=== PATIENT | male | born 1975 | race Asian ===

== ENCOUNTER 2017-11-19 22:10 | Emergency (ER) | payer OTHER ==
[~2017-11-19] VITALS: Ht 162.6 cm; Wt 56.7 kg
--- NOTE | 2017-11-19 22:25 | NUR ---
PT A/OX4 BREATHING EFFORTLESSLY ON ROOM AIR, PT STATES HE WAS HVAING DINNER AND STARTED HAVING A SIEZURE, PT DENIES ANY INJURIES AT THIS TIME AND STATES HIS LAST ONE WAS 1.5 YEARS AGO AND DOES NOT TAKE ANYTHING FOR SIEZURES, PT ON MONITOR, ION GOWN, BED RAILS PADDED, MADE AWARE WILL CONTINUE TO MONITOR.
--- NOTE | 2017-11-19 22:45 | NUR ---
PT REFUSING IV AND DILATIN AT THIS TIME, MD MADE AWARE WILL CONTINUE TO MONITOR.
[2017-11-19] MEDS: phenytoin SODIUM IV 1,000 MG in IV NS 0.9% 100 ML IV ONE (22:48)
[2017-11-19 23:07] LABS: BASOPHILS # (AUTO) 0.1 /CMM (0.0-0.2); BASOPHILS % (AUTO) 0.9 % (0.0-2.0); EOSINOPHILS # (AUTO) 0.1 /CMM (0.0-0.7); EOSINOPHILS % (AUTO) 1.2 % (0.0-6.0); HEMATOCRIT 43 % (39-51); HEMOGLOBIN 14.7 g/dL (13.5-17.5); LYMPHOCYTES # (AUTO) 1.7 /CMM (0.8-4.8); MEAN CORPUSCULAR HEMOGLOBIN 30 PG (26.0-33.0); MEAN CORPUSCULAR HGB CONC 34 g/dl (31.0-36.0); MEAN CORPUSCULAR VOLUME 87 fL (80-96); MONOCYTES # (AUTO) 0.4 /CMM (0.1-1.30); MONOCYTES % (AUTO) 6.8 % (2.0-12.0); NEUTROPHILS # (AUTO) 3.4 /CMM (1.8-8.9); NEUTROPHILS % (AUTO) 60.1 % (43.0-81.0); PLATELET COUNT (AUTO) 167 /CMM (150-450); RDW COEFFICIENT OF VARIATION 13.3 (11.5-15.0); RED BLOOD CELL COUNT(AUTO) 4.94 MIL/uL (4.5-6.0); WHITE BLOOD COUNT (AUTO) 5.6 K/uL (4.3-11.0)
[2017-11-19 23:15] LABS: CALCIUM, SERUM 8.9 mg/dL (8.5-10.1); CREATININE 1.2 mg/dL (0.6-1.3); POTASSIUM 3.5 mmol/L (3.5-5.1)
[2017-11-19 23:17] LABS: INR 0.96 (0.87-1.13)
[2017-11-19 23:21] LABS: BILIRUBIN,DIRECT 0.1 mg/dL (0.0-0.2); BILIRUBIN,TOTAL 0.3 mg/dL (0.2-1.0); TOTAL PROTEIN, SERUM 7.5 g/dL (6.4-8.2)
--- NOTE | 2017-11-19 23:33 | NUR ---
URINE SENT TO LAB
[2017-11-20 00:39] LABS: APPEARANCE,URINE CLEAR (CLEAR); BILIRUBIN,URINE NEGATIVE (NEGATIVE); BLOOD, URINE NEGATIVE Ery/uL (NEGATIVE); COLOR,URINE YELLOW (YELLOW); KETONES,URINE NEGATIVE (NEGATIVE); LEUKOCYTE ESTERASE ,URINE NEGATIVE (NEGATIVE); NITRITE, URINE NEGATIVE (NEGATIVE); PROTEIN,URINE NEGATIVE (NEGATIVE); UGLUCOSE NEGATIVE (NEGATIVE); UROBILINOGEN,URINE 0.2 EU/dL (0.2)
[2017-11-20 00:57] VITALS: BP 111/68
== END 2017-11-20 00:57 | disposition home or self-care (01) ==
LOC: ER 22:12
DX: G40.909 Epilepsy, unspecified, not intractable, without status epilepticus (principal)
CPT/HCPCS: 36415; 70450; 71045; 80048; 80076; 80305; 81001; 82962; 85025; 85730; 93005; 99285; A4606; G0480; J7030; Z7610; 81000-TC; J1165